=== PATIENT | female | born 1935 | race Caucasian/White ===

== ENCOUNTER 2016-09-19 20:19 | Emergency (ER) | payer MEDICARE, OTHER ==
[~2016-09-19] VITALS: Ht 157.5 cm; Wt 54.5 kg
[~2016-09-19 20:19] MED LIST: ASPI-275 PO; CALC-696 PO; DONE5TAB30 PO; MULT-185 PO; ROSU5TAB PO; SERT25TA6 PO; TIMO5DRO7 BOTH_EYES; TRAV5DRO OP
[2016-09-19 20:22] VITALS: BP 153/89; PULSE 63; RESP 16; O2SAT 94
--- NOTE | 2016-09-19 21:00 | DRSVH ---
PROCEDURE: X-RAY FINGERS, TWO VIEWS INDICATIONS: Pain after trauma. TECHNIQUE: AP hand, 2 views of the first finger(s) acquired. COMPARISON: None. FINDINGS: Bones: No fractures or dislocations. No suspicious bony lesions. There is severe degenerative oste oarthritic change at the interface between the base of the first metacarpal and the trapezium. Moder ately severe degenerative changes seen at the inner phalangeal joints distally. No erosive arthritis identified. Soft tissues: No suspicious soft tissue calcifications. IMPRESSION: A arthritic change is severe at the base of the first metacarpal, and moderately severe at the interphalangeal joints especially distally elsewhere, but no acute trauma found. Dictated by: Alton Browne M.D. on 09/19/2016 at 20:57 Approved by: Alton Browne M.D. on 09/19/2016 at 20:59
--- NOTE | 2016-09-19 21:30 | ED.REPORT ---
HPI-Extremity Problem Upper Date of Service Sep 19, 2016 ED Provider: Dr. Yakov Craft The patient is a 81 year old female who presents to the ED due to left thumb pain after a GLF. No head strike and no other injury. She did not lose consciousness and is awake and alert at the ED. She denies wrist pain and has a small abrasion at the base of the left thumb. She is up-to-date on her tetanus shot. Pt is not on blood thinners. Nursing Notes Stated Complaint: FELL ON THUMB Chief Complaint: Extremity Trauma Nursing Notes Reviewed: Yes Allergies: Coded Allergies: Sulfa (Sulfonamide Antibiotics) (Verified Allergy, Mild, RASH, 09/19/16) Scheduled Aspirin (Ecotrin) 325 Mg Tablet. 325 MG PO DAILY Calcium Citrate/Vitamin D2 ([place]ivera-Citrate Plus Vitamin D Tab) 1 Each Tablet 1 EACH PO DAILY Donepezil (Donepezil) 5 Mg Tablet 5 MG PO HS Multivitamin with Minerals (Multivitamins with Minerals) 1 Each Tablet 1 EACH PO DAILY Rosuvastatin Calcium (Crestor) 5 Mg Tablet 5 MG PO DAILY Sertraline HCl (Sertraline) 25 Mg Tablet 25 MG PO DAILY Timolol Maleate (Timoptic) 5 Ml Drops 5 ML BOTH_EYES BID Travoprost (Travatan Z) 5 Ml Drops 1 DROP OP HS General Time Seen by MD: 21:30 Chief Complaint Finger injury left 1 Hx Obtained From: Patient Arrived By: Walk-in Onset Occurred: Just prior to arrival Symptom Duration: Since onset Caused by: Accidental Location: : Finger left 1 Severity: Current: Mild Recent Healthcare: No recent doctor visit, No recent hospitalization Similar Sx Previous: No Past Medical History Past Medical History TIA 11/14/13 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 Physical Exam Physical Exam Notes: Initial Vital Signs Vital Signs (First) Date Time Temp Pulse Resp B/P Pulse Ox O2 Delivery O2 Flow Rate FiO2 09/19/16 20:22 36.3 63 16 153/89 94 Room Air Initial VS: Reviewed General/Constitutional: Well-developed, Well-nourished Head / Eyes: Atraumatic, Normocephalic, PERRL ENT: Mucous membranes moist, Conjunctiva normal Respiratory: Breath sounds normal, Clear to auscultation, No respiratory distress Cardiovascular: Regular rate & rhythm, Heart sounds normal, Intact distal pulses Lower Extremities: Vascular intact, Neuro intact, No swelling, No tenderness Skin: Warm, Dry Left Thumb: Positive: Swelling present..., Tenderness present... grossly swollen edematous thumb w/ lots of hematoma on the skin Interpretation & Diagnostics X-Ray Interpretation Xray Interpretation: FINGER X-RAY IMPRESSION: A arthritic change is severe at the base of the first metacarpal, and moderately severe at the interphalangeal joints especially distally elsewhere, but no acute trauma found. Dictated by: Alton Browne M.D. on 09/19/2016 at 20:57 Approved by: Alton Browne M.D. on 09/19/2016 at 20:59 Interpretation / Wet Read by: Interpret - Radiologist Re-Eval/Medical Decision Med Decision/Clinical Course 81-year-old female with a ground-level fall resulting in sprain of the thumb and significant hematoma. No fracture apparent, but significant degenerative disease present in all of her joints. Placed in a thumb spica splint with bacitracin dressing to the small skin abrasion/avulsion. Follow-up with PCP. Aleve or ibuprofen as needed for pain. Counseled Regarding: Diagnosis, Lab results, Need for follow-up, When/why to return to ED Discharge & Departure Impression: Primary Impression: Left thumb sprain Additional Impression: Abrasion hand Disposition: Home Discharge Condition All VS Reviewed: Yes Condition: Stable Additional Instructions: Ice frequently first twenty-four hours to reduce swelling. Then he may shifted over to heat after twenty-four hours. Elevate above the heart whenever possible. Wear the splint multimedia teacher for the first 5-7 days, and then remove if nontender by that time. If it remains tender, continue to wear the splint until it is nontender. Follow-up with your doctor in the office. Aleve or ibuprofen as needed for pain. Bacitracin Band-Aid to the abraded area 2-3 times daily until healed. Return if any immediate issues over the weekend. Referrals: Janina Hoffman MD (PCP) Scribe Attestation Portion of this note were transcribed by Estephania Carey. I, Dr. Craft, personally performed the history, physical exam, and medical decision-making: I reviewed and confirmed the accuracy for the information in the transcribed note. Signed by: yoandy Adam, 09/19/16 2300 copies to: Janina Hoffman MD, Christopher W MD Sep 19, 2016 21:30 Estephania Carey Sep 19, 2016 21:38
[2016-10-07] MEDS ORDERED: DONE10TA42 PO (11:34)
[2016-10-07] MEDS ORDERED: MULT-1018 PO (11:34)
[2016-10-07] MEDS ORDERED: ROSU5TAB PO (11:34)
[2016-10-07] MEDS ORDERED: CLOP75TA3 PO (11:34)
[2016-10-07] MEDS ORDERED: ASPI325T32 PO (11:34)
[2016-10-07] MEDS ORDERED: CALC-786 PO (11:34)
[2016-10-07] MEDS ORDERED: TRAV5DRO OP (11:34)
== END 2016-09-19 22:27 | disposition home or self-care (01) ==
LOC: SED 20:19
DX: S63.602A Unspecified sprain of left thumb, initial encounter (principal); S60.512A Abrasion of left hand, initial encounter; W01.0XXA Fall on same level from slipping, tripping and stumbling without subsequent striking against object, initial encounter; Y93.89 Activity, other specified; Y92.89 Other specified places as the place of occurrence of the external cause; Y99.8 Other external cause status; E78.5 Hyperlipidemia, unspecified; Z79.82 Long term (current) use of aspirin

== ENCOUNTER 2016-10-02 10:00 | Emergency (ER) | payer MEDICARE, OTHER ==
[~2016-10-02] VITALS: Ht 157.5 cm; Wt 52.3 kg
[2016-10-02 10:02] VITALS: BP 140/87; PULSE 70; RESP 16; O2SAT 98
[2016-10-02] MEDS ORDERED: MULT-666 PO (10:21)
[2016-10-02] MEDS ORDERED: ASPI325T32 PO (10:21)
--- NOTE | 2016-10-02 11:05 | DRSVH ---
PROCEDURE: X-RAY FINGERS, TWO VIEWS INDICATIONS: left thumb pain/swelling TECHNIQUE: AP hand, 2 views of the thumb acquired. COMPARISON: None. FINDINGS: Bones: Articulating avulsion fracture base of the first distal phalanx. There is mild subluxation at the IP joint of the thumb and periarticular calcifications or small bone densities. Degenerative joint disease is evident at the basilar joint of this, the first, second and third metac arpal joints as well as the IP joints of the fingers. Generalized osteopenia. Soft tissues: No suspicious soft tissue calcifications. IMPRESSION: 1. Articulating fracture/subluxation injury at the IP joint of the thumb. 2. Multifocal arthritis. 3. Osteopenia. Dictated by: Antonio Quinn M.D. on 10/02/2016 at 11:00 Approved by: Antonio Quinn M.D. on 10/02/2016 at 11:03
--- NOTE | 2016-10-02 11:18 | ED.REPORT ---
HPI-Extremity Problem Upper Date of Service October 02, 2016 ED Provider: Ladarius Machado MD An 81 year old female with a medical history including osteoarthritis and TIA presents to the ED with a left thumb injury onset two weeks ago, after a ground level fall. The patient was seen in the ED just after onset and was discharged in a splint with a diagnosis of a thumb sprain. However, her pain has persisted and she returns for repeat x-rays. The patient also reports left thumb swelling and reduced ROM. She denies other symptoms. Nursing Notes Stated Complaint: L WRIST RECHECK Chief Complaint: Extremity Trauma Nursing Notes Reviewed: Yes Allergies: Coded Allergies: Sulfa (Sulfonamide Antibiotics) (Verified Allergy, Mild, RASH, 09/19/16) Scheduled Calcium Citrate/Vitamin D2 (Rivera-Citrate Plus Vitamin D Tab) 1 Each Tablet 1 EACH PO DAILY Donepezil (Donepezil) 5 Mg Tablet 5 MG PO HS Rosuvastatin Calcium (Crestor) 5 Mg Tablet 5 MG PO DAILY Timolol Maleate (Timoptic) 5 Ml Drops 5 ML BOTH_EYES BID Travoprost (Travatan Z) 5 Ml Drops 1 DROP OP HS Miscellaneous Medications Aspirin (Aspirin) 325 Mg Tablet 325 MG PO Multivitamin (Once Daily) 1 Each Tablet 1 EACH PO General Time Seen by MD: 10:11 Chief Complaint Finger injury left 1 Hx Obtained From: Patient Arrived By: Walk-in Onset Occurred: More than a week ago... 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 Respiratory: Denies: Non-productive cough, Shortness of breath GI: Denies: Diarrhea, Vomiting Physical Exam Physical Exam Notes: Initial Vital Signs Vital Signs (First) Date Time Temp Pulse Resp B/P Pulse Ox O2 Delivery O2 Flow Rate FiO2 10/02/16 10:02 35.8 70 16 140/87 98 Room Air Initial VS: Reviewed Head / Eyes: Atraumatic, Normocephalic ENT: Conjunctiva normal, No scleral icterus Neck: Supple, Full range of motion Skin: Warm, Dry, No cyanosis Neurologic: Alert, Oriented, Nonfocal Psychiatric: Mood/affect normal, Behavior normal, Normal thought content General/Constitutional: Awake, Alert Wrist / Hand: Neurologic intact, Vascular intact Left Thumb: Positive: ROM reduced Left thumb held at 30 degrees of flexion at PIP joint Interpretation & Diagnostics X-Ray Interpretation Xray Interpretation: IMPRESSION: 1. Articulating fracture/subluxation injury at the IP joint of the thumb. 2. Multifocal arthritis. 3. Osteopenia. Dictated by: Antonio Quinn M.D. on 10/02/2016 at 11:00 Study Performed: Fingers, 2 view X-Ray Ordered: Hand left Interpretation / Wet Read by: Interpret - Radiologist Procedures Digital Nerve Block Digital Nerve Block Note: Left thumb Time: 12:15 Procedure Performed by: ED physician Indication: Other (fracture/subluxation reduction) Consent / Setup / Site Prep: Informed consent provided, Consent from patient Skin Preparation Agent: Hibiclens - Chlorhexidine Digit Involved: Thumb left Digital Block Procedure: Four digital nerve block, Lidocaine 1%, 4cc, 25g needle Post-Procedure / Complications: No complications, Tolerated procedure well, Patient stable Reduction Finger Left thumb Time: 12:53 Procedure Performed by: ED physician Consent / Setup / Site Prep: Consent from patient, Time-out performed, Hand hygiene observed Finger / Joint Involved: Left 1 Anesthetic Method / Agent: Digital block, Lidocaine 1% Post-Procedure / Complications: NV intact post-procedure, Procedure not successful, No complications, Tolerated procedure well, Patient stable Splint Application - Fx Mgt Splint Application- Fx Mgt: Left thumb. Procedure Performed by: ED physician Precise Anatomic Location: Left thumb spica Type of Immobilization: Aluminum-foam Definitive Fracture Care: Pain control, Splint Post-Procedure / Complications: Cap refill normal, Post splint neuro nl, Condition improved, Tolerated procedure well Re-Eval/Medical Decision Med Decision/Clinical Course 81-year-old female with left thumb pain who weeks status post fall onto left thumb. She was splinted at that time and there was no obvious fracture noted on the x-ray. She now returns with inability to flex her left thumb. On x-ray there is a left distal thumb fracture or subluxation. It appears to be on previous x-ray as well. I performed a digital block and attempted to reduce but was unable to reduce. Patient requested to stop due to pressure. Patient preferred splinting and given number for hand surgeon to call for appointment next week. Left thumb spica splint placed. Neurovascular intact post splint placement. She will also follow up with her primary doctor. Source of Hx: Old records Re-Evaluation/Progress : Time of Eval: 12:55 Patient Status: Condition improved Re-Evaluation/Progress Note: Reduction attempted. Discussed with patient x-ray results, diagnosis, and plan for discharge. Follow-up and return to the ER instructions given. Patient agrees with plan for care and all questions were addressed. Counseled Regarding: Diagnosis, Need for follow-up, When/why to return to ED Discharge & Departure Impression: Primary Impression: Fracture of thumb, left, closed Encounter type: subsequent encounter Phalanx: unspecified phalanx Additional Impression: Thumb dislocation Encounter type: subsequent encounter Laterality: left Qualified Code: S63.105D - Unspecified dislocation of left thumb, subsequent encounter Disposition: Home Discharge Condition All VS Reviewed: Yes Condition: Improved Patient Instructions: Thumb Fracture (GEN), Splint Care (ED) Additional Instructions: Thank you for entrusting us with your care. Wear the splint until you are seen in follow-up. Call your primary care provider on Wednesday for a follow-up appointment. You can also call the referred orthopedist. Return to the ER with any new or worsening symptoms. Referrals: Janina Hoffman MD (PCP) Yakov Marin MD Attestation Portions of this note were transcribed by France Guzmán. I, Dr. Machado, personally performed the history, physical exam, and medical decision-making; I reviewed and confirmed the accuracy of the information in the transcribed note. Signed by: Arnel Muhammad, 10/02/2016, 14:35 copies to: Janina Hoffman MD; Yakov Marin MD, Ben M MD October 02, 2016 11:18 FR[place] GUZMÁN October 02, 2016 11:29
[2016-10-02 13:02] VITALS: BP 136/82; PULSE 71; RESP 16; O2SAT 98
[2016-10-07] MEDS ORDERED: TRAV5DRO OP (11:34)
[2016-10-07] MEDS ORDERED: CLOP75TA3 PO (11:34)
[2016-10-07] MEDS ORDERED: ROSU5TAB PO (11:34)
[2016-10-07] MEDS ORDERED: DONE10TA42 PO (11:34)
[2016-10-07] MEDS ORDERED: ASPI325T32 PO (11:34)
[2016-10-07] MEDS ORDERED: CALC-786 PO (11:34)
[2016-10-07] MEDS ORDERED: MULT-1018 PO (11:34)
== END 2016-10-02 13:02 | disposition home or self-care (01) ==
LOC: SED 10:00
DX: S62.522D Displaced fracture of distal phalanx of left thumb, subsequent encounter for fracture with routine healing (principal); S63.105D Unspecified dislocation of left thumb, subsequent encounter; W18.39XD Other fall on same level, subsequent encounter; Y93.9 Activity, unspecified; Y92.9 Unspecified place or not applicable; Y99.9 Unspecified external cause status; E78.5 Hyperlipidemia, unspecified; Z86.73 Personal history of transient ischemic attack (TIA), and cerebral infarction without residual deficits; Z79.899 Other long term (current) drug therapy; Z88.2 Allergy status to sulfonamides

== ENCOUNTER 2016-10-08 11:59 | Day surgery (SDC) | payer MEDICARE, OTHER ==
[~2016-10-08] VITALS: Ht 157.5 cm; Wt 59.1 kg
[2016-10-08] VITALS (10 sets, daily range): BP systolic 126–146; BP diastolic 64–81; PULSE 52–77; RESP 14–22; O2SAT 91–96
[~2016-10-08 11:59] MED LIST changes: -ASPI-275 PO; +ASPI325T32 PO; -CALC-696 PO; +CALC-786 PO; +CLOP75TA3 PO; +CeFAZolin Inj 2,000 MG in Dextrose 5% 50 ML IV SCH; +DONE10TA42 PO; -DONE5TAB30 PO; +Dexamethasone 4 mg/mL Inj IVPUSH PRN; +EPHEDrine Sulfate 50 mg/mL Inj IVPUSH PRN; +HYDROmorphone 1 mg/mL Inj IVPUSH PRN; +Labetalol 5 mg/mL 4 mL Inj IV PRN; +Lactated Ringer's 500 ML IV PRN; +MULT-1018 PO; -MULT-185 PO; +MetoCLOpramide 5 mg/mL 2 mL Inj IVPUSH PRN; +Ondansetron 2 mg/mL 2 mL Inj IVPUSH PRN; +Phenylephrine 10,000 mCg/mL Inj IVPUSH PRN; -SERT25TA6 PO; -TIMO5DRO7 BOTH_EYES; +hydrALAZINE 20 mg/mL Inj IVPUSH PRN
[2016-10-08] MEDS ORDERED: Propofol 10,000 mCg/mL 20 mL Inj ONE (12:00)
[2016-10-08] MEDS ORDERED: Ondansetron 2 mg/mL 2 mL Inj ONE (12:00)
[2016-10-08] MEDS ORDERED: fentaNYL-PF 50 mCg/mL 2 mL Inj ONE (12:00)
[2016-10-08] MEDS ORDERED: Dexamethasone 4 mg/mL Inj ONE (12:00)
[2016-10-08] MEDS ORDERED: Succinylcholine Chloride 20 mg/mL 5 mL Inj ONE (12:00)
[2016-10-08] MEDS: Lactated Ringer's 1,000 ML IV SCH ×2 (12:21→15:27)
[2016-10-08] MEDS ORDERED: CeFAZolin Inj 2 gm / 50mL D5W IV ONE (12:36)
[2016-10-08] MEDS ORDERED: Codeine-APAP 30-300 mg Tablet PO PRN (15:20)
--- NOTE | 2016-10-08 15:23 | PCM.HPANE ---
Patient Data Date of Service: October 08, 2016 Surgeon Admitting Provider: Attending Provider:Viral Botello DO Primary Care Physician:Janina Hoffman MD Other Provider:Ang Serrato Anesthesia Reason for Visit Left Thumb Dip Fracture/Dislocation Ht/WT & BMI Height (Feet): 5 Height (Inches): 2 Weight (Kilograms): 59.1 Body Mass Index 23.00 Allergies Coded Allergies: Sulfa (Sulfonamide Antibiotics) (Verified Allergy, Mild, RASH, 10/08/16) Past Anesthesia History Anesthesia History: Denies:: Anesthesia Reactions Diabetes History Hx Diabetes?: No MRSA MRSA: No Medications Blood Thinner: Aspirin, Plavix Hypertension Medication: No Home Meds Incl Beta Chay: No Reported Medications Travoprost (Travatan Z)5 Ml Drops5 Ml OP DAILY 10/07/16 Multivitamin (Multi Vitamin Daily)1 Each Tablet1 Each PO DAILY 30 Days Ref 0 10/07/16 Donepezil 10 Mg [id number] Mg PO HS Ref 0 10/07/16 Rosuvastatin Calcium (Crestor)5 Mg Tablet5 Mg PO DAILY 30 Days Ref 0 10/07/16 Clopidogrel Bisulfate (Plavix)75 Mg Rdngfo03 Mg PO DAILY 30 Days Ref 0 10/07/16 Calcium Carb & Cit/Vitamin D3 (Citracal + D ER Tablet)1 Each Tablet.er1 Each PO DAILY 10/07/16 Aspirin 325 Mg [id number] Mg PO DAILY #1 BOTTLE 10/07/16 Discontinued Reported Medications Multivitamin (Once Daily)1 Each Tablet1 Each PO 10/02/16 Aspirin 325 Mg [id number] Mg PO #1 BOTTLE 10/02/16 Timolol Maleate (Timoptic)5 Ml Drops5 Ml BOTH_EYES BID 06/29/16 Donepezil 5 Mg [id number] Mg PO HS Ref 0 06/26/16 Rosuvastatin Calcium (Crestor)5 Mg Tablet5 Mg PO DAILY 30 Days Ref 0 06/26/16 Calcium Citrate/Vitamin D2 (Rivera-Citrate Plus Vitamin D Tab)1 Each Tablet1 Each PO DAILY 06/26/16 Travoprost (Travatan Z)5 Ml Drops1 Drop OP HS 01/01/14 Sertraline HCl (Sertraline)25 Mg Kmuppg46 Mg PO DAILY 30 Days Ref 0 06/29/16 Multivitamin with Minerals (Multivitamins with Minerals)1 Each Tablet1 Each PO DAILY 09/07/14 Aspirin (Ecotrin)325 Mg Tablet.dr325 Mg PO DAILY 01/01/14 History History of ENT Problems?: Yes HEENT History: Denies:: Cataracts Dysphagia Sinus Problem Denture Type: None Teeth Condition: Within Normal Limits Hx of Heart Problems?: Yes Cardiovascular History: Positive for:: Cardiac Surgery (Mitral valve 12/2013) Heart Murmur Valvular Heart Disease (mitral valve replaced, 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%) Denies:: Chest Pain Congestive Heart Failure Edema Hypertension Irregular Heartbeat Pacemaker Thrombophlebitis Hx of Respiratory Problem?: No Respiratory History: Denies:: Oxygen Administration Tuberculosis Use of C-PAP Machine Hx Neurologic Problems?: Yes Neurological History: Positive for:: CVA (11/2013 mild memory impairment) Headaches (migraines) Denies:: Alzheimer's Disease Dementia Dizziness Parkinson's Disease Seizures Hx of GI Problems?: No Hx of Problems?: Yes Genitourinary History: Positive for:: Kidney Stones Denies:: HX of Hemodialysis Urinary Tract Infection HX of Peritoneal Dialysis: No Female Hx: Denies:: Currently (hysterectomy) Endometriosis Pelvic Inflammatory Problems with Breasts? Skin History: Denies:: History Skin Disorders? Pressure Ulcers Hx Musculoskeletal Problems?: Yes Musculoskeletal History: Positive for:: Back Injury (cervical disk surgery) Musculoskeletal Trauma (left thumb fx current admission problem) Denies:: Joint Replacement Hx of Psycho/Social Problems?: No Hx Surgeries?: Yes (cervical fusion, appy, tonsils, bladder suspension, hysterectomy, cardiac v) Hx Any Other Health Problems?: Yes Other History: Positive for:: Hospitalization Denies:: Cancer Endocrine Disease Thyroid Disease History Blood Transfusions: Denies:: Blood Transfuse Reaction Blood Transfusions Hx Diabetes: No Hx Alcohol Use: NoHx Substance Use: No Smoking Status: Never Smoker Have You Smoked inLast 12 mo: No Stop/Bang Treated for Sleep Apnea?: No Do You Have a CPAP Machine?: No S-Snoring: Do You Snore Loudly: No T-Tired: feel tired, fatigued: Yes O-Obsered: Observed not breath: No P-Blood Pressure: treated: No B- Body Mass Index > 35 kg/m2: No A- Age over 50: Yes N- Neck Large Circumference: No G- Gender Male: No PANDA Total Score: 2 PANDA Risk Assessment: Low Risk, <3 Yes Risk Assessment Category Category 1A: Patient has history of documented sleep apnea, and HAS NOT received any narcotic, sedative or anesthesia administration during this stay. Category 1B: Patient has history of documented sleep apnea, and HAS received any narcotic , sedative or anesthesia administration during this stay Category 2: Patient has SUSPECTED Obstructive Sleep Apnea, and HAS received any narcotic , sedative or anesthesia administration during this stay. Category 3: Patient has SUSPECTED Obstructive Sleep Apnea and HAS NOT received narcotic, sedative or anesthesia administration during this stay. Category 4: Outpatient in Procedural Areas with known sleep apnea or who screen positive for High Risk via the STOP/BANG questionnaire. Exam Exam Vital Signs Vital Signs Date Time Temp Pulse Resp B/P Pulse Ox O2 Delivery O2 Flow Rate FiO2 10/08/16 12:29 36.1 62 16 132/70 95 Room Air General Appearance: Alert, Oriented X3, Cooperative, No Acute Distress HEENT/AIRWAY: MP 2 Lungs: Clear to Auscultation, Normal Air Movement Heart: Exam Unremarkable, Regular Rate/Rhythm, No Murmurs/Rubs/Gallops Meds/Labs/Diagnostics Admission Meds Current Medications Lactated Ringer's (Lr) 1,000 ml @ 120 mls/hr [id number] IV Last administered on t 12:21; Start 10/08/16 at 07:44; Stop 10/08/16 at 15:43 Plan Impression Patient chart reviewed, patient interviewed and anesthestic plan with risks, benefits, and alternatives discussed, and informed consent obtained. NPO per Anesth. Guidelines: Yes ASA Physical Status: ASA2 Mod Systemic Disease Anesthetic Plan: GA Bene/Risks/Altern/Consents: Yes HP Complete Prior to Induction: Yes Clint Larios MD October 08, 2016 15:23
[2016-10-08] MEDS ORDERED: Lidocaine 1%-Epi 1:100,000 20 mL Inj INJ ONE (15:49)
[2016-10-08] MEDS: fentaNYL-PF 50 mCg/mL 2 mL Inj IVPUSH PRN ×2 (16:50→17:06)
--- NOTE | 2016-10-08 17:00 | PCM.ANEP1 ---
Post Anesthesia Phase 1 PACU Phase 1 Assessment Date of Service: October 08, 2016 Vital Signs Vital Signs Date Time Temp Pulse Resp B/P Pulse Ox O2 Delivery O2 Flow Rate FiO2 10/08/16 16:54 56 22 140/80 93 Room Air 10/08/16 16:45 58 21 140/79 95 Room Air 10/08/16 16:40 60 20 132/76 95 Room Air 10/08/16 16:25 77 14 136/75 94 Room Air 10/08/16 16:24 36.2 72 17 142/81 95 Room Air 10/08/16 12:29 36.1 62 16 132/70 95 Room Air Anesthetic Administered: GA Level of Alertness: Awake, talking Pain: No Nausea or Vomiting: No Oxygen Delivery: Room Air Lungs: Clear to Auscultation, Normal Air Movement Complications: No Clint Larios MD October 08, 2016 17:00
--- NOTE | 2016-10-09 15:38 | OP ---
[address] [address] OPERATIVE REPORT PATIENT: DANIELLE DOOLEY : 1935 MR#: [id number] ADMIT: 10/08/2016 JOB ID: [id number] DATE OF SURGERY: 10/08/2016 PREOPERATIVE DIAGNOSIS(ES): Left thumb distal interphalangeal fracture dislocation. POSTOPERATIVE DIAGNOSIS(ES): Left thumb distal interphalangeal fracture dislocation. PROCEDURE: Open reduction, internal fixation of left thumb distal interphalangeal fracture dislocation. SURGEON: Viral Botello DO ANESTHESIA: General. HISTORY: This patient is a pleasant, 81-year-old female that presented to me with a nearly 3-week history of left thumb DIP fracture dorsal dislocation following a fall. She had attempted closed reduction performed in the emergency department which was unsuccessful. I explained to the patient with the fracture dislocation, the risks, benefits, and indications to proceed with a closed versus open reduction internal fixation in the operative setting. She understood the risks include, but not limited to, neurovascular injury, tendon injury, infection, failure of fixation, stiffness, persistent pain, all of which may require further intervention. Patient had all questions answered. Consent was signed and placed in chart. PROCEDURE IN DETAIL: The patient was brought to the operative suite and placed on the operating room table. Surgical time-out was performed. Everyone was in agreement. After appropriate anesthesia was obtained, the patient's left upper extremity was then prepped and draped in a sterile fashion. The patient's thumb was attempted to be closed reduced several times under fluoroscopy but was unsuccessful. A dorsal H-shaped incision was made centered overlying the DIP joint. The capsule was entered along the radial margin and levered utilizing a [place] which allowed for an excellent reduction. The reduction was not well maintained on its own and a repeat reduction had to be made with constant pressure applied in order to maintain the reduction. This was followed by application of two retrograde K-wires; one consisting of a 0.045 inch K-wire; one consisting of a 0.035 inch K-wire. After verifying appropriate placement of the K-wires, they were bent outside the skin and cut short. Attention was then turned towards the volar aspect of the thumb. A Archie incision was made to explore the underlying flexor tendon. It was highly likely that the tendon was still attached to the volar fragment, but with the dorsal dislocation, wanted to ensure that the tendon itself had not also ruptured. The neurovascular bundles were well protected. The tendon was identified and well attached to the volar fragment, thus no further procedure was necessary. Copious irrigation was performed followed by closure of the skin incision with 5-0 nylon simple interrupted fashion. The patient was then placed into a bulky thumb spica splint. ESTIMATED BLOOD LOSS: Less than 1 cc. COMPLICATIONS: None. DISPOSITION: The patient tolerated the procedure well. Anesthesia was reversed. The patient was transferred to PACU for recovery. IMPLANTS: 1. One 0.045 inch K-wire. 2. One 0.035 inch K-wire. POSTOPERATIVE PLAN: The patient will follow up in the office in two weeks. We will repeat x-rays at that time and have her transition into a thumb spica cast for two additional weeks prior to removing the pins in the office. ZACHERY
== END 2016-10-08 23:59 | disposition home or self-care (01) ==
LOC: SAS 11:59
PROVIDERS: ATTEND Orthopaedic Surgery
DX: S63.145A Dislocation of distal interphalangeal joint of left thumb, initial encounter (principal); S62.522A Displaced fracture of distal phalanx of left thumb, initial encounter for closed fracture; E78.2 Mixed hyperlipidemia; I65.29 Occlusion and stenosis of unspecified carotid artery; N28.9 Disorder of kidney and ureter, unspecified; G31.84 Mild cognitive impairment of uncertain or unknown etiology; W18.39XA Other fall on same level, initial encounter; Y93.02 Activity, running; Y92.9 Unspecified place or not applicable; Y99.8 Other external cause status; Z90.710 Acquired absence of both cervix and uterus; Z79.82 Long term (current) use of aspirin; Z79.02 Long term (current) use of antithrombotics/antiplatelets; Z86.73 Personal history of transient ischemic attack (TIA), and cerebral infarction without residual deficits; Z87.442 Personal history of urinary calculi
CPT/HCPCS: 26785; J0330; J0690; J1100; J2405; J3010; J7120